=== PATIENT | female | born 2000 | race Hispanic/Latino ===

== ENCOUNTER 2018-02-10 08:35 | Inpatient (IN) | payer OTHER ==
[2018-02-10] MEDS ORDERED: CARBOPROST TROME 250 MCG/ML IM PRN (16:45)
[2018-02-10] MEDS ORDERED: METHYLERGONOVINE 0.2MG/ML AMP IM PRN (16:45)
[2018-02-10] MEDS ORDERED: BUTORPHANOL 1 MG/ML INJ IV PRN (16:45)
[2018-02-10] MEDS ORDERED: MEPERIDINE HCL 25 MG/0.5 ML IV PRN (16:45)
[2018-02-10] MEDS ORDERED: PROMETHAZINE 25 MG/ML VIAL IM PRN (16:45)
[2018-02-10] MEDS ORDERED: Ringers Lactate 1,000 ML IV PRN (16:45)
[2018-02-10] MEDS ORDERED: miSOPROStol 100 MCG TAB PO SCH (17:00)
[2018-02-10] MEDS ORDERED: Ringers Lactate 1,000 ML IV SCH (17:00)
[2018-02-10] MEDS ORDERED: ZOLPIDEM TARTRATE 10 MG TABLET PO ONE (17:01)
[2018-02-10] MEDS ORDERED: miSOPROStol 100 MCG TAB ONE (17:11)
[2018-02-10 17:16] LABS: RPR Titer ND
[2018-02-10 17:20] LABS: Absolute Lymphocytes (CBC) 1.1 K/uL (0.7-4.9); Absolute Monocytes 0.6 K/uL (0.1-1.3); Absolute Neutrophil 8.8 K/uL (1.8-8.0); Basophils % 0.3 % (0-1.3); Eosinophils % 0.4 % (0-4.4); Hematocrit 26.8 % (36.0-45.0); Lymphocytes % 10.3 % (15.3-44.8); MCV 72.7 fL (80-100); MPV 11.7 fL (7.6-11.3); Monocytes % 5.4 % (3.3-12.3); RBC Red Blood Cell Count 3.68 M/uL (3.86-4.86); Urine Appearance CLOUDY; Urine Bilirubin NEGATIVE (NEG); Urine Blood NEGATIVE (NEG); Urine Color YELLOW; Urine Glucose NEGATIVE (NEG); Urine Protein NEGATIVE (NEG); Urine Specific Gravity 1.025 (1.005-1.030); Urine pH 6.5 (5.0-7.0)
[2018-02-10 17:24] LABS: Urine Microscopic Reflex ORDER UMIC
--- NOTE | 2018-02-10 17:30 | RAD REPORT ---
EXAM DESCRIPTION: RAD - Abdomen 1 View (KUB) - 02/10/2018 5:25 pm CLINICAL HISTORY: For presentation Pain COMPARISON: No comparisons FINDINGS: position is cephalic. spine is to the maternal left. The head appears engaged in the region of the pelvic inlet.
[2018-02-10 17:31] LABS: Urine Bacteria LOADED /HPF (<20); Urine Culture Reflex Order REFLEXED; Urine Mucus 2+ /HPF (NONE SEEN); Urine RBC <5 /HPF (NONE SEEN)
[2018-02-10 17:46] VITALS: BMI 33.5
[2018-02-10] MEDS ORDERED: INFLUENZA VACCINE (for 3y+) 0.5 ML DOSE IMVAC ONE (18:00)
[2018-02-10 19:16] LABS: RPR (Rapid Plasma Reagin) NON-REACT (NON-REACT)
--- NOTE | 2018-02-10 21:03 | PREOPHP ---
Date of Admission: 02/10/2018 Sherly Holliday is a 17-year-old, primigravida, 39 weeks and 4 days according to her dates, forty week s according to the ultrasound. Rh negative. She has received RhoGAM during the . Nonimmun e to Rubella. This has been discussed with the patient. Beta strep negative. The patient is 1.5 cm , baby is vertex. We will go with Cytotec administration 50 mcg every 4 hours for 4 doses unless she goes in active labor, in which case, of course, we will stop at that point. After 4 doses, then we will begin Pitocin. She knows that probably will not have the baby until sometime tomorrow. She als o knows risks and side effects of induce labor with an unfavorable cervix and that she has an increas ed chance for delivery. Full labor talk given. CHERELLE/SANTI Voice ID: [id number]
[2018-02-11] MEDS ORDERED: OXYTOCIN/LR 20 UNIT/1,000 ML BAG IV SCH ×2 (06:00→23:45)
--- NOTE | 2018-02-11 11:55 | PN ---
Sherly Holliday had 4 doses of Cytotec, states she is having contractions that are uncomfortable, but she has required no pain medicines yet. Pelvic exam shows the baby very firmly against the cervix. Cervix is 70% effaced, soft, but still only 1 cm, not enough to rupture membranes at this point. We will start Pitocin as she is having regular contractions, but not really painful, and she knows that by the end of the day we should see some progress or possibly could end up with . Full disc ussion with patient and significant other. CHERELLE/SANTI Voice ID: [id number] Report ID: [id number]
[2018-02-11] MEDS ORDERED: CARBOPROST TROME 250 MCG/ML IM PRN (14:01)
[2018-02-11] MEDS ORDERED: METHYLERGONOVINE 0.2MG/ML AMP IM PRN (14:01)
[2018-02-11] MEDS ORDERED: FENTANYL/BUPIVACAINE/NS/PF 200 MCG/100 ML BAG EP PRN (14:09)
[2018-02-11] MEDS ORDERED: BUPIVACAINE 0.25% PF 10 ML VIAL IV PRN (14:11)
[2018-02-11] MEDS ORDERED: FENTANYL CITR 100 MCG/2 ML IV ONE (14:13)
--- NOTE | 2018-02-11 15:22 | PN ---
The patient is on 12 milliunits of Pitocin, pee every minute and a half she says are getting firm cervix still showed no change whatsoever we will continue to increase the Pitocin and check her again about every 2 hours until we make a decision about what to do later on this afternoon. CHERELLE/SANTI Voice ID: [id number] Report ID: [id number]
--- NOTE | 2018-02-11 16:34 | PN ---
Kimberly regularly. The patient is now 1.5 cm, 50% effaced, vertex, -1 station. Rupture of membr anes, clear fluid. Anticipate better progress since we have the membranes ruptured. The patient bradley ws we still may end up with a , but at least this point she has a better chance of delivering . We will see over the next 4 to 6 hours what kind of progress we are making. Full discussion with patient and family. CHERELLE/SANTI Voice ID: [id number] Report ID: [id number]
[2018-02-11] MEDS ORDERED: BUPIVACAINE 0.25% PF 10 ML VIAL ONE (17:00)
[2018-02-11] MEDS ORDERED: FENTANYL CITR 100 MCG/2 ML ONE (17:00)
[2018-02-11] MEDS ORDERED: FENTANYL/BUPIVACAINE/NS/PF 200 MCG/100 ML BAG EP ONE (17:01)
[2018-02-11] MEDS ORDERED: LIDOCAINE 1% MPF 30 ML VIAL ONE (21:38)
--- NOTE | 2018-02-11 21:40 | PN ---
The patient is on 24 milliunits of Pitocin, pee every minute and a half, very firm. She is n ow 3 cm, 70-80% effaced, vertex, -1 station. She has had 2 doses of Stadol and at this point we have discussed options. I think she has a reasonable chance of possible having a vaginal delivery, but s he is becoming so uncomfortable that I think she probably would benefit from an epidural. She knows after effects of epidural predictably could help her and relax her, she could dilate quick or could s low her down, it is difficult to predict at this point. We will get the epidural going and then we w ill have more relaxed time to discuss what happen next. She does not have a big baby and I think jayden t with the cervix change now that we should give it more time and she agrees an epidural prior to be reasonable thing to try. If she does not dilate of course, we can use the epidural for the , but we will let anesthesia know and try to get her more comfortable and then go from there. CHERELLE/SANTI Voice ID: [id number] Report ID: [id number]
[2018-02-11] MEDS ORDERED: BISACODYL 10 MG RECTAL SUPP RECT PRN (23:14)
[2018-02-11] MEDS ORDERED: IBUPROFEN 200 MG TAB PO PRN (23:14)
[2018-02-11] MEDS ORDERED: DOCUSATE NA/SENNA CONC 1 TAB PO PRN (23:14)
[2018-02-11] MEDS ORDERED: Oxycodone HCl/Acetaminophen 1 TAB TAB PO PRN (23:14)
[2018-02-11] MEDS ORDERED: ACETAMINOPHEN 500 MG TAB PO PRN (23:14)
[2018-02-11] MEDS ORDERED: DIPHENHYDRAMINE 25 MG TAB/CAP PO PRN (23:14)
[2018-02-12] MEDS ORDERED: Rho(D) IG (HUMAN) 300 MCG SYR IM ONE (01:31)
--- NOTE | 2018-02-12 01:37 | PN ---
Subjective: The patient had epidural started. She is very comfortable at this point. Following epi dural, she had some nonreassuring decelerations but Pitocin was discontinued and now has been restart ed. Baby still looks somewhat sluggish because of the Stadol she had earlier, but there are no signi ficant deceleration at this point. She is 3-1/2 cm, 70% effaced, vertex, well applied, at -1 station . She is pee regularly. We will see her during next 1-2 hours if she makes progress. If so , we will continue with vaginal delivery attempt; if not, go to operative delivery. Full discussion with the patient's family. CHERELLE/SANTI Voice ID: [id number] Report ID: [id number]
--- NOTE | 2018-02-12 01:56 | PN ---
The patient went from 5. Now, she is completely dilated, +1 to +2 station. She needs to start pushi ng at this point. I think we are fairly close to the delivery. Baby still looks quite good. Vital signs stable. NBC/MODL Voice ID: [id number] Report ID: [id number]
--- NOTE | 2018-02-12 04:42 | DS ---
Hospital Course: A 17-year-old primigravida, 39 weeks 4 days, had Cytotec 50 mcg 4 doses, then start ed on Pitocin. Rupture of membranes at approximately 1.5 cm. The patient went into a more active la bor pattern thereafter. Epidural anesthesia, at approximately 3 to 4 cm. The patient reached 5 cm a nd then rapidly went to complete. Second stage of 30 minutes, more or less. Spontaneous vaginal del maral of an estimated 5-gnkka-fnof male . Apgars 8 and 9. Small first-degree laceration on th e left side of the labia minora, 2-0 chromic after local infiltration, 5 stitches. Schultze delivery of the placenta, which was inspected and noted to be intact and normal. A 350 cc or less blood loss . The patient is Rh negative, received RhoGAM during the , has been anemic, has been equivo aury immunity to rubella and will receive rubella immunization. This has been discussed with her. shaunna had her Tdap immunization. Final Diagnoses: Term intrauterine , Cytotec for cervical ripening, labor induction, vagina l delivery, epidural anesthesia. CHERELLE/SANTI Voice ID: [id number] Report ID: [id number]
[2018-02-12] MEDS: Oxycodone HCl/Acetaminophen 1 TAB TAB PO PRN (15:29)
[2018-02-13] MEDS: Oxycodone HCl/Acetaminophen 1 TAB TAB PO PRN (00:45)
[2018-02-13 02:24] LABS: HBsAG Nonreactive (Nonreactive)
--- NOTE | 2018-02-13 04:04 | DS ---
Hospital Course: A 17-year-old primigravida, 39 weeks and 4 days. Had Cytotec administered at 39 we eks and 5 days. Rupture of membranes was performed. The patient went into a more active labor patzen rn. Subsequently, delivered an estimated 7-pound plus male infant. Apgars 8 and 9. Epidural anesth esia. First-degree laceration requiring 5 stiches, 2-0 chromic, running-locked. Schultze delivery o f the placenta. Estimated blood loss 350 cc or less. Placenta inspected and noted to be intact and normal. Beta strep negative. The patient is Rh negative, has received RhoGAM during the w ill be qualified for RhoGAM before she leaves. She has equivocal immunity to rubella that she has be en suggested to have rubella immunization as well and has been offered a flu shot. Dismissed with tr amadol for analgesia, although she may elect to take Motrin instead. Final Diagnoses: Term intrauterine at 38 weeks and 4 days, Cytotec for cervical ripening 3 9 weeks and 5 days, vaginal delivery, epidural anesthesia, rubella immunization, RhoGAM administratio n, and flu shot all suggested and offered. CHERELLE/SANTI Voice ID: [id number] Report ID: [id number]
[2018-02-13 08:17] VITALS: BP 115/64; TEMP 97
[2018-02-13] MEDS ORDERED: MEASLES,MUMPS,RUBELLA VAC 0.5ML SQVAC ONE (08:25)
[2018-02-13] MEDS ORDERED: INFLUENZA VACCINE (for 3y+) 0.5 ML DOSE IMVAC ONE (08:47)
== END 2018-02-13 10:25 | disposition home or self-care (01) | DRG 807 ==
LOC: 2ND-WC 16:19
PROVIDERS: ADMIT Specialist; ATTEND Specialist
PROC: 3E033VJ Introduction of Other Hormone into Peripheral Vein, Percutaneous Approach (ICD-10-PCS; 2018-02-10)
PROC: 10E0XZZ Delivery of Products of Conception, External Approach (ICD-10-PCS; principal; 2018-02-12)
PROC: 3E0P7VZ Introduction of Hormone into Female Reproductive, Via Natural or Artificial Opening (ICD-10-PCS; 2018-02-12)
PROC: 10907ZC Drainage of Amniotic Fluid, Therapeutic from Products of Conception, Via Natural or Artificial Opening (ICD-10-PCS; 2018-02-12)
PROC: 0HQ9XZZ Repair Perineum Skin, External Approach (ICD-10-PCS; 2018-02-12)
PROC: 3E0234Z Introduction of Serum, Toxoid and Vaccine into Muscle, Percutaneous Approach (ICD-10-PCS; 2018-02-12)
DX: O26.893 Other specified pregnancy related conditions, third trimester (principal); Z37.0 Single live birth; O70.0 First degree perineal laceration during delivery; O76 Abnormality in fetal heart rate and rhythm complicating labor and delivery; Z3A.39 39 weeks gestation of pregnancy; Z67.41 Type O blood, Rh negative
CPT/HCPCS: 36415; 74018; 81003; 81015; 85025; 85461; 86592; 86850; 86870; 86901; 87086; 87088; 87340; 90707; J0595; J2210; J2550; J2590; J2790; J3010; Q2035